=== PATIENT | female | born 1970 | race African-American/Black ===

== ENCOUNTER 2025-07-10 15:56 | Emergency (ER) | payer SELFPAY ==
[~2025-07-10] VITALS: Ht 170.2 cm; Wt 90.0 kg
[2025-07-10 16:03] VITALS: O2SAT 98
[2025-07-10 16:20] VITALS: TEMP 37; O2SAT 100
[2025-07-10 16:25] VITALS: BP 117/53; PULSE 92; RESP 15
[2025-07-10] MEDS: IBUPROFEN 600MG TABLET PO ONE (16:25)
[2025-07-10] MEDS: METHOCARBAMOL 500MG TABLET PO ONE (16:25)
[2025-07-10] MEDS ORDERED: IBUP-1455 MT (17:28)
[2025-07-10] MEDS ORDERED: LIDO700A30 TP (17:28)
[2025-07-10] MEDS ORDERED: METH-653 MT (17:28)
== END 2025-07-10 18:40 | disposition home or self-care (01) ==
LOC: ER 15:56
DX: S13.4XXA Sprain of ligaments of cervical spine, initial encounter (principal); Z88.0 Allergy status to penicillin; X58.XXXA Exposure to other specified factors, initial encounter; Y93.89 Activity, other specified; Y92.89 Other specified places as the place of occurrence of the external cause; Y99.8 Other external cause status
CPT/HCPCS: 99284